=== PATIENT | female | born 1965 | race African-American/Black ===

== ENCOUNTER 2018-08-30 01:51 | Emergency (ER) | payer SELFPAY ==
[~2018-08-30] VITALS: Ht 172.7 cm; Wt 108.0 kg
[2018-08-30 02:03] VITALS: Ht 172.7 cm; Wt 108.0 kg
[2018-08-30 03:06] LABS: CALCIUM 8.7 mg/dL (8.5-10.1); CARBON DIOXIDE 29.9 mmol/L (21-32); CREATININE SERUM 1.1 mg/dL (0.6-1.0); POTASSIUM SERUM 3.7 mmol/L (3.5-5.1)
[2018-08-30 03:18] LABS: BASOPHIL % 0.5 % (0-2); PLATELET COUNT 279 x10^3mcL (130-400)
[2018-08-30 03:19] LABS: BILIRUBIN TOTAL 0.2 mg/dL (0.20-1.00); FREE T4 1.18 ng/dL (0.76-1.46); TOTAL PROTEIN, SERUM 7.6 g/dL (6.4-8.2)
[2018-08-30 03:23] LABS: RED CELL DISTRIBUTION WIDTH 15.5 % (11.5-14.5)
[2018-08-30 03:52] LABS: ALBUMIN 3.1 g/dL (3.4-5.0)
[2018-08-30 06:40] VITALS: BP 146/99
== END 2018-08-30 06:40 | disposition home or self-care (01) ==
LOC: ED 01:51
PROVIDERS: Emergency Medicine
DX: D25.9 Leiomyoma of uterus, unspecified (principal); N93.8 Other specified abnormal uterine and vaginal bleeding; R10.2 Pelvic and perineal pain; Z88.6 Allergy status to analgesic agent; Z88.5 Allergy status to narcotic agent; Z98.890 Other specified postprocedural states
CPT/HCPCS: 84439; J1200; J1410; J1885; J2270